=== PATIENT | female | born 1980 | race Caucasian/White ===

== ENCOUNTER 2017-10-17 23:59 | Emergency (ER) | payer SELFPAY ==
[2017-10-17 23:59] VITALS: BMI 30.1
[2017-10-18 00:24] VITALS: RESP 16
[2017-10-18] MEDS ORDERED: Naproxen 500 MG TAB PO STA (00:35)
[2017-10-18] MEDS ORDERED: Naproxen 500 MG TAB PO ONE (00:57)
--- NOTE | 2017-10-18 01:43 | ED PDOC ---
Upper Extremity Pain/Injury Time Seen by Provider: 10/18/17 00:26 Chief Complaint (Nursing): Finger,Hand,&Wrist History Per: Patient Additional Complaint(s): 37 yo F reports that she tripped and fell earlier today injuring her R wrist, c/ o pain and swelling. Denies any numbness, decreases in ROM, elbow pain, neck pain, back pain, or any other injury. Past Medical History Vital Signs: Last Vital Signs Temp 98.9 F 10/18/17 00:22 Pulse 75 10/18/17 00:22 Resp 16 10/18/17 00:22 BP 127/81 10/18/17 00:22 Pulse Ox 97 10/18/17 00:22 - Family History Family History: States: Unknown Family Hx - Immunization History Hx Tetanus Toxoid Vaccination: No Hx Influenza Vaccination: No Hx Pneumococcal Vaccination: No - Home Medications Home Medications: Ambulatory Orders Medication Instructions Recorded Cyclobenzaprine [Cyclobenzaprine 10 mg PO HS #10 tab 05/03/17 HCl] Ibuprofen [Motrin] 600 mg PO Q6H #24 tab 05/03/17 Naproxen 500 mg PO BID PRN #20 tablet 10/18/17 - Allergies Allergies/Adverse Reactions: Allergies Allergy/AdvReac Type Severity Reaction Status Date / Time No Known Allergies Allergy Verified 01/07/14 10:51 Review of Systems Constitutional: Negative for: Fever, Malaise Musculoskeletal: Positive for: Other (R wrist pain). Negative for: Neck Pain, Back Pain, Hand Pain Skin: Negative for: Rash, Lesions Physical Exam - Physical Exam Appears: Positive for: Well, Non-toxic, No Acute Distress Head Exam: Positive for: ATRAUMATIC, NORMAL INSPECTION, NORMOCEPHALIC Skin: Positive for: Normal Color, Warm, Dry Eye Exam: Positive for: Normal appearance ENT: Positive for: Normal ENT Inspection Neck: Positive for: Normal, Painless ROM Pulses-Radial (R): 2+ Back: Positive for: Normal Inspection. Negative for: Vertebral Tenderness Extremity: Positive for: Normal ROM, Capillary Refill (<2 sec), Other (R wrist : +deformity, no tenderness, no edema, +FROM. Rest of the hand, fingers and elbow non-tender with FROM.) Neurologic/Psych: Positive for: Alert, hedis review nurse II-XII (intact), Oriented (x3). Negative for: Motor/Sensory Deficits - ECG O2 Sat by Pulse Oximetry: 97 Medical Decision Making Medical Decision Making: Plan : - XR R wrist - Naprosyn PO XR R wrist : +slight deformity to the distal radius with no new fracture, no dislocation, as read by PA Patient advised that today's XR reading is preliminary and final radiology reading will be performed in 24 hours, the patient will be contacted for any discrepancies. X-ray results discussed with the patient in great detail. Patient states that she fractured her R wrist when she was 9 years old. Orthoglass volar splint applied. Sling applied. Neurovascular intact post splint application.Patient instructed to follow-up with orthopedic referral provided in 1-2 days without fail. Advised to take medication as prescribed. Rest, ice and elevate the joint. Return to the emergency room at any time for any new or worsening symptoms. Patient states she fully agrees with and understands discharge instructions. States that she agrees with the plan and disposition. Verbalized and repeated discharge instructions and plan. I have given the patient opportunity to ask any additional questions. Disposition - Clinical Impression Clinical Impression: Sprain of wrist, right - Patient ED Disposition Is Patient to be Admitted: No Counseled Patient/Family Regarding: Studies Performed, Diagnosis, Need For Followup, Rx Given - Disposition Referrals: Floyd Haley III, MD [Staff Provider] - Disposition: Routine/Home Disposition Time: 01:45 Condition: STABLE Additional Instructions: [place] por dejarnos atenderlo hoy. Usted fue tratado por un esguince en la mu eca derecha. La atencin mdica de emergencia que recibi hoy se dirigi a los s ntomas agudos de presentacin. Descanse, hiele y eleve. Si le prescribieron alg n medicamento, por favor llnelo y d mae se lo indic. Tejal sntomas pueden tardar varios duran en resolverse. Regrese al Departamento de Emergencia en cualquier momento si los sntomas empeoran, no mejoran o si surge algn otro problema. Comunquese con chacon mdico en 2 duran para gwendolyn reevaluacin y seguimiento / o llame a chelsey de los mdicos / clnicas a los que altman referido y que figura en el formulario de Informacin de visitas del paciente que se incluye en chacon paquete de magalie. Lleve todos los documentos que recibi al momento del magalie junto con los medicamentos a chacon visita de seguimiento. Nuestro tratamiento no puede reemplazar la atencin mdica en curso por parte de un proveedor de atencin primaria (PCP) fuera del departamento de emergencias. [place] por permitir que el equipo de [facility] sea parte de chacon cuidado hoy. Si se hizo gwendolyn radiografa: un radilogo revisar la lectura del DE si se necesita algn cambio en el tratamiento, nos comunicaremos con usted. Prescriptions: Naproxen 500 mg PO BID PRN #20 tablet PRN Reason: Pain, Moderate (4-7) Instructions: Wrist Sprain (DC) Forms: [employer] (Latvian), [facility] ED School/Work Excuse Print Language: UGANDAN - PA / WOOD CARVING LATHE OPERATOR / Resident Statement MD/DO has reviewed & agrees with the documentation as recorded.
--- NOTE | 2017-10-18 01:51 | RAD ---
Date of service: 10/18/2017 PROCEDURE: Right Wrist Radiographs. HISTORY: pain COMPARISON: None. FINDINGS: BONES: Normal. No fracture. JOINTS: Normal. No dislocation. SOFT TISSUES: Normal. OTHER FINDINGS: None. IMPRESSION: Normal right wrist radiographs.
[2017-10-18 02:36] VITALS: BP 120/77; PULSE 69; TEMP 98.7; O2SAT 100
== END 2017-10-18 02:20 | disposition home or self-care (01) ==
LOC: H.ER 23:59
DX: S63.501A Unspecified sprain of right wrist, initial encounter (principal); W19.XXXA Unspecified fall, initial encounter; Y92.89 Other specified places as the place of occurrence of the external cause